=== PATIENT | male | born 1955 | race Caucasian/White ===

== ENCOUNTER 2021-02-08 13:04 | Emergency (ER) | payer OTHER, SELFPAY ==
--- NOTE | ~2021-02-08 | CT_ITS ---
EXAMINATION: CT abdomen pelvis w con DATE: 02/08/2021 15:38 INDICATION: Left abdominal pain. Vomiting. Hematuria. TECHNIQUE: Computed tomography (CT) of the abdomen and pelvis was performed with 100 mL Omnipaque 350 intravenous contrast. Automated exposure control and iterative reconstruction technique were employe d. The dose-length product was 565.90 mGy-cm. COMPARISON: None. FINDINGS: The visualized portions of the lung bases demonstrate mild atelectasis in right middle lobe . No pleural effusion. The heart size is normal. No pericardial effusion. There is a small sliding hi atal hernia. There are cysts in the liver measuring up to 7 mm. Calcifications in the liver and splee n are consistent with old granulomatous disease. The gallbladder, pancreas, adrenal glands are normal . There are cysts in the kidneys measuring up to 6 mm on the right. There is a 4 mm stone in right ki dney. There is mild left hydronephrosis and hydroureter. There is a 3 mm stone in distal left ureter. The prostate is mildly enlarged. There are no dilated loops of bowel. The appendix is not visualized . There are no pathologically enlarged lymph nodes. There is no free intraperitoneal fluid. There is mild lumbar spondylosis. IMPRESSION: 1. 3 mm stone in distal left ureter with mild left hydronephrosis and hydroureter. 2. 4 mm nonobstructing right kidney stone. Reviewed, dictated and finalized at location B. IMPRESSION: 1. 3 mm stone in distal left ureter with mild left hydronephrosis and hydrouret er. 2. 4 mm nonobstructing right kidney stone.
--- NOTE | ~2021-02-08 | XR_ITS ---
EXAMINATION: XR abdomen/kub 1V DATE: 02/08/2021 16:02 INDICATION: Distal left ureteral stone. TECHNIQUE: A supine view of the abdomen on 2 radiographs was obtained. COMPARISON: CT dated 02/08/2021 FINDINGS: There is excreted contrast within the bilateral renal collecting systems, ureters and bladder from th e recent prior contrast enhanced CT . There is mild left hydroureteronephrosis extending caudally whe re there is an abrupt transition located in the position of the previous noted 3 mm distal left urete ral stone which is partially obscured by the excreted contrast abutting its proximal margin. This is located slightly medial to a phlebolith in the left hemipelvis. Normal bowel gas pattern. Multiple sp lenic calcific lesions consistent with old granulomatous disease. Lung bases are clear. Heart size is normal. Bones are unremarkable. IMPRESSION: 1. Mild left hydroureteronephrosis with transition point the region of the previously noted 3 mm dist al left ureteral stone which is obscured by the adjacent excreted contrast in the ureter. Reviewed, dictated and finalized at location A. IMPRESSION: 1. Mild left hydroureteronephrosis with transition point the region of the prev iously noted 3 mm distal left ureteral stone which is obscured by the adjacent excreted contrast in the ureter.
[2021-02-08 13:07] VITALS: BP 193/101; PULSE 60; RESP 20; TEMP 36.2; O2SAT 100
--- NOTE | 2021-02-08 13:14 | ECG_ITS ---
Measurements Intervals [place] Rate: 54 P: 47 AK: 192 QRS: 29 QRSD: 98 T: 42 QT: 426 QTc: 405 Interpretive Statements SINUS BRADYCARDIA BORDERLINE ECG Electronically Signed On 02-08-2021 14:09:55 CDT by Omar Lopez D.O.
[2021-02-08 13:28] LABS: Basophils Percent Auto 0.2 % (0.2-1.2); Eosinophils Percent Auto 0.1 % (0-4.4); Hematocrit 44.3 % (42.0-52.0); Hemoglobin 14.7 g/dL (14.0-18.0); Immature Granulocyte Absolute 0.06 K/mm3 (0.00-0.031); Immature Granulocyte Percent A 0.5 % (0-0.5); Lymphocytes Absolute Auto 1.53 K/mm3 (0.9-3.2); Lymphocytes Percent Auto 11.7 % (18.3-44.2); Mean Corpuscular HGB Conc 33.2 g/dl (32-36); Mean Corpuscular Hemoglobin 31.2 pg (26-34); Mean Corpuscular Volume 94.1 fl (80-100); Mean Platelet Volume 10.5 fl (7.4-10.4); Monocytes Absolute Auto 0.6 K/mm3 (0.1-0.6); Monocytes Percent Auto 4.2 % (2.6-8.5); Neutrophils Absolute Auto 10.9 K/mm3 (1.3-6.7); Neutrophils Percent Auto 83.3 % (45.5-73.1); Platelet Count Result 233 k/mm3 (150-375); Red Blood Count 4.71 M/mm3 (4.6-6.20); White Blood Count 13.1 K/mm3 (4.5-10.0)
[2021-02-08 13:39] LABS: Anion Gap 4 mmol/L (8-16); Blood Urea Nitrogen 24 mg/dL (9-20); Calcium 9.3 mg/dL (8.4-10.2); Carbon Dioxide 31 mmol/L (22-30); Chloride 106 mmol/L (98-107); Estimated CRCL calculation 50 ml/min; Estimated Glomerular Filt Rate 51; Glucose 134 mg/dL (75-110); Sodium 141 mmol/L (137-145)
[2021-02-08 14:10] LABS: Add Urine Microscopic? YES; Appearance Urine Cloudy (Clear); Bilirubin Urine Negative (Negative); Blood Urine 3+ (Negative); Color Urine Yellow (Yellow); Glucose Urine UA Negative (Negative); Ketones Urine Negative (Negative); Leukocyte Esterase Ur Negative LEU/UL (Negative); Mucus Urine Rare /lpf; Nitrate Urine Negative (Negative); Protein Urine 2+ mg/dL (Negative); RBC Urine >75 /hpf (0-2); Specific Grav Ur 1.023 (1.001-1.035); Squamous Epithelial Cell Urine Rare /hpf (Few); Urobilinogen Urine Negative mg/dL (<2.0)
--- NOTE | 2021-02-08 15:16 | ED.ABDPAIN ---
HPI - Abdominal Pain General Chief Complaint: Abdominal Pain Stated Complaint: flank pain Time Seen by Provider: 02/08/21 15:05 Source: patient Mode of arrival: ambulatory Limitations: no limitations History of Present Illness HPI narrative: This is a 65-year-old male that presents the emergency department for left-sided abdominal pain since this morning. Associated with nausea and vomiting. Also reports abdominal bloating and chills. Denies fever, chest pain, shortness of breath, diarrhea, dysuria, or hematuria. Related Data Allergies Allergy/AdvReac Type Severity Reaction Status Date / Time No Known Allergies Allergy Unverified 10/02/15 10:29 Review of Systems Review of Systems: Narrative: CONSTITUTIONAL: Denies fever CARDIOVASCULAR: Denies chest pain RESPIRATORY: Denies dyspnea. GASTROINTESTINAL: Report abdominal pain, nausea, vomiting. Denies diarrhea. GENITOURINARY: Denies dysuria or hematuria. All systems reviewed & are unremarkable except as noted in HPI and below PMFSH Past Medical History Medical History (Updated 02/08/21 @ 17:39 by Sheila Dawn PA-C) History of hyperlipidemia History of hypertension Surgical History Surgical History (Updated 02/08/21 @ 15:18 by Sheila Dawn PA-C) History of appendectomy Exam Narrative: Exam Narrative: GENERAL: Well-appearing, well-nourished, and in no acute distress. HEAD: Normocephalic, atraumatic. EYES: EOMI. CHEST: Clear to auscultation. No respiratory distress. No wheezes rales or rhonchi HEART: Regular rate and rhythm. No murmur heard. Normal peripheral pulses. ABDOMEN: Soft, nontender, nondistended, normal active bowel sounds. No CVA tenderness EXTREMITIES: Normal range of motion. No edema. SKIN: Warm, dry, no rash. NEURO: No focal deficits. Alert and oriented x3. PSYCH: Normal mood and affect Course Consultations Consultation #1: Spoke with Dr. Rees about patient and work-up will follow up in clinic Date: 02/08/21 Time: 17:00 Vital Signs Vital signs: Vital Signs Temperature 97.2 F L 02/08/21 13:07 Pulse Rate 60 02/08/21 13:07 Respiratory Rate 20 02/08/21 13:07 Blood Pressure 193/101 H 02/08/21 13:07 Pulse Oximetry 100 02/08/21 13:07 Temperature 97.2 F L 02/08/21 13:07 Pulse Rate 79 02/08/21 17:10 Respiratory Rate 15 02/08/21 17:10 Blood Pressure 170/89 H 02/08/21 17:10 Pulse Oximetry 100 02/08/21 17:10 MDM - Abdominal Pain MDM Narrative Medical decision making narrative: Patient presents the emergency department for left-sided abdominal pain. He is afebrile and nontoxic-appearing. Blood pressure incidentally noted to be elevated in the ED. Instructed to monitor this at home and continue his blood pressure medication. He is to follow-up with primary care provider for this. CBC with mild leukocytosis to 13.1. Metabolic panel with creatinine of 1.4 and GFR of 51. Unsure if this is chronic for patient as I do not have any recent labs. UA without overt evidence of infection, does show red blood cells. No leuk esterase or nitrates. I did send this for culture. CT scan abdomen and pelvis shows a 3 mm stone in the distal left ureter with mild left hydronephrosis and hydroureter. Patient hydrated with IV fluids in the ED. Pain is under control. Is to follow-up with urology outpatient. Spoke with Dr. Rees about patient and work-up will follow up in clinic. Patient was given warnings to return to the ER Lab Data Attestation: I reviewed the patient's lab results. Result diagrams: 02/08/21 13:19 02/08/21 13:19 Labs: Lab Results 02/08/21 02/08/21 02/08/21 Range/Units 13:19 13:19 13:19 WBC 13.1 H (4.5-10.0) K/mm3 RBC 4.71 (4.6-6.20) M/mm3 Hgb 14.7 (14.0-18.0) g/dL Hct 44.3 (42.0-52.0) % MCV 94.1 (80-100) fl MCH 31.2 (26-34) pg MCHC 33.2 (32-36) g/dl RDW 12.0 (11.5-14.5) % Plt Count 233 (150-375) k/mm3 MPV 10.5 H
[2021-02-08 15:21] LABS: Alanine Aminotransferase 24 U/L (4-50); Albumin Level 4.4 g/dL (3.5-5.1); Alkaline Phosphatase 52 U/L (38-126); Aspartate Amino Transferase 30 U/L (17-59); Bilirubin,Total 0.5 mg/dL (0.2-1.3); Lipase 80 U/L (23-300)
--- NOTE | 2021-02-08 15:29 | PC.NURSE ---
Pt to CT scan via stretcher at this time.
[2021-02-08 15:42] VITALS: BP 169/90; PULSE 93; RESP 14; O2SAT 100
[2021-02-08] MEDS: SODIUM CHLORIDE 0.9% IV 1,000 ML 999 ML IV CONT (17:08)
[2021-02-08 17:10] VITALS: BP 170/89; PULSE 79; RESP 15; O2SAT 100
[2021-02-08 18:16] VITALS: BP 172/99; PULSE 101; RESP 18; O2SAT 99
--- NOTE | 2021-02-14 09:55 | PC.NURSE ---
LATE ENTRY This note is being entered to document information to the patient's record. The following information was omitted on 02/08/21, by Vanessa Billingsley RN. 1000MLS NS infused at 1809, 0 volume left in container. /PAPITO MACIAS
== END 2021-02-08 18:23 | disposition home or self-care (01) ==
PROVIDERS: Physician Assistant; Emergency Provider Emergency Medicine
DX: N13.2 Hydronephrosis with renal and ureteral calculous obstruction (principal); R00.1 Bradycardia, unspecified; E78.5 Hyperlipidemia, unspecified; I10 Essential (primary) hypertension
CPT/HCPCS: 36415; 74018; 74177; 80048; 80076; 81001; 83690; 85025; 87086; 93005; 96360; 99284; J7030; Q9967